=== PATIENT | female | born 1990 ===

== ENCOUNTER 2021-10-10 03:27 | Emergency (ER) | payer BC, SELFPAY ==
[2021-10-10] MEDS ORDERED: NA CHLORIDE 0.9% 1,000 ML ONE (03:55)
[2021-10-10 04:01] LABS: Absolute Lymphocytes (CBC) 2.4 K/uL (0.7-4.9); Hematocrit 38.7 % (36.0-45.0); Lymphocytes % 22.8 % (15.3-44.8); MPV 7.9 fL (7.6-11.3); RBC Red Blood Cell Count 4.21 M/uL (3.86-4.86)
[2021-10-10 04:22] LABS: ALT/SGPT 22 U/L (12-78); AST/SGOT 13 U/L (15-37); Albumin 3.6 g/dL (3.4-5.0); Alkaline Phosphatase 60 U/L (45-117); BUN Blood Urea Nitrogen 10 mg/dL (7-18); Bicarbonate 23 mmol/L (21-32); Bilirubin Total 0.2 mg/dL (0.2-1.0); Glucose Level 101 mg/dL (74-106); Potassium 3.5 mmol/L (3.5-5.1); Protein, Total 6.9 g/dL (6.4-8.2); Sodium Level 145 mmol/L (136-145)
[2021-10-10 04:23] LABS: Bilirubin Direct < 0.1 mg/dL (0-0.2)
[2021-10-10 07:30] LABS: Urine Blood Trace-intact (Negative); Urine Glucose Negative (Negative); Urine Protein Negative (Negative)
[2021-10-10 07:56] LABS: Troponin High Sensitivity 13.7 pg/mL (<58.9)
[2021-10-10 08:21] LABS: Barbiturates NEGATIVE (NEGATIVE); Benzodiazepines NEGATIVE (NEGATIVE); Cocaine NEGATIVE (NEGATIVE); METHAMPHETAM NEGATIVE (NEGATIVE); Methadone NEGATIVE (NEGATIVE); Opiates NEGATIVE (NEGATIVE); Phencyclidine NEGATIVE (NEGATIVE); THC Cannibis NEGATIVE (NEGATIVE)
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
[2021-10-10 09:21] VITALS: TEMP 98.1
[2021-10-10 09:27] VITALS: BP 122/83; O2SAT 98
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
== END 2021-10-10 09:14 | disposition home or self-care (01) ==
LOC: ER 03:27
DX: S20.219A Contusion of unspecified front wall of thorax, initial encounter (principal); V49.40XA Driver injured in collision with unspecified motor vehicles in traffic accident, initial encounter; F41.9 Anxiety disorder, unspecified
CPT/HCPCS: 36415; 70450; 71260; 72125; 74177; 80048; 80076; 80307; 80320; 81003; 81025; 82550; 84484; 84703; 85025; 85610; 85730; 86850; 86900; 86901; 93005; 96360; 96361; 99285; J7030; Q9967